=== PATIENT | female | born 1990 | race Two or more races ===

== ENCOUNTER 2019-07-06 06:26 | Emergency (ER) | payer SELFPAY ==
[2019-07-06 06:35] VITALS: BP 146/81
--- NOTE | 2019-07-06 06:52 | ED Physician Documentation ---
PD HPI HEENT - Stated complaint Stated Complaint: EAR PX - Chief complaint Chief Complaint: Heent - History obtained from History obtained from: Patient - History of Present Illness Timing - onset: How many days ago (few) Timing - duration: Days (few) Timing - details: Gradual onset Location: Right ear Worsens: Swalllowing, Position Associated symptoms: Congestion (He states she does have a history of allergies and gets congested and sometimes feeling of clogged ears. Typically will improve with some Claritin. The current congestion and right ear pressure has not improved with Claritin the last few days and is now hurting significantly overnight.). No: Fever Similar symptoms before: Has not had sx before Review of Systems Constitutional: denies: Fever, Chills Ears: reports: Ear pain. denies: Drainage/discharge Throat: denies: Sore throat Respiratory: denies: Cough PD PAST MEDICAL HISTORY - Past Medical History Past Medical History: No Cardiovascular: None Respiratory: None Neuro: None Endocrine/Autoimmune: None GI: None BIOINFORMATICS ANALYST: None : None HEENT: None Psych: None Musculoskeletal: None Derm: None - Past Surgical History Past Surgical History: No - Present Medications Home Medications: Ambulatory Orders Medication Instructions Recorded Confirmed Hydrocodone/Acetaminophen [[place] 1 each PO Q6H PRN #12 tablet 07/06/19 5-325 Tablet] RX: Amoxicillin 500 mg PO TID #21 capsule 07/06/19 dexAMETHasone [Decadron] 4 mg PO DAILY #5 tablet 07/06/19 - Allergies Allergies/Adverse Reactions: Allergies Allergy/AdvReac Type Severity Reaction Status Date / Time No Known Drug Allergies Allergy Verified 07/06/19 06:35 - Social History Does the pt smoke?: Yes Smoking Status: Current every day smoker Does the pt drink ETOH?: No Does the pt have substance abuse?: No - Immunizations Immunizations are current?: Yes - POLST Patient has POLST: No PD ED PE NORMAL - Vitals Vital signs reviewed: Yes - General General: Alert and oriented X 3, No acute distress, Well developed/nourished - HEENT HEENT: Pharynx benign. No: Ears normal (Left is normal. Right with redness and bulging of the TM, with some canal redness and swelling as well. No exudate. ) - Neck Neck: Supple, no meningeal sign, No adenopathy - Cardiac Cardiac: RRR, No murmur - Respiratory Respiratory: Clear bilaterally Results - Vitals Vitals: Vital Signs - 24 hr 07/06/19 06:34 Temperature 36.6 C Heart Rate 79 Respiratory 17 Rate Blood Pressure 146/81 H O2 Saturation 98 Oxygen O2 Source Room air Departure - Departure Disposition: 01 Home, Self Care Clinical Impression: Otitis media, Ear pain, right Condition: Stable Record reviewed to determine appropriate education?: Yes Instructions: ED Otitis Media Acute Adult Prescriptions: RX: Amoxicillin 500 mg PO TID #21 capsule dexAMETHasone [Decadron] 4 mg PO DAILY #5 tablet Hydrocodone/Acetaminophen [[place] 5-325 Tablet] 1 each PO Q6H PRN #12 tablet PRN Reason: Pain Comments: Use a daily allergy medicine such as Claritin or Zyrtec. Stay well-hydrated. Take the amoxicillin antibiotic 3 times a day for a week. Add Decadron steroid for inflammation of the ear in the canal daily for several more days as directed. Add Tylenol or hydrocodone if needed for pain and this should improve over the next day or 2 do not need to be taking pain medicine beyond that. Recheck if not improved well over the next few days. Discharge Date/Time: 07/06/19 07:14
[2019-07-06] MEDS ORDERED: AMOXICILLIN 250 MG CAPSULE PO STA (06:58)
[2019-07-06] MEDS ORDERED: HYDROcod/ACETAM 5/325 MG TABLET PO STA (06:58)
[2019-07-06] MEDS ORDERED: CHERRY SYRUP 10 ML UDC PO ONE (06:59)
[2019-07-06] MEDS ORDERED: CETIRIZINE 10 MG TABLET PO STA (06:59)
[2019-07-06] MEDS ORDERED: DEXAMETHASONE 10 MG/ML VIAL PO STA (06:59)
== END 2019-07-06 07:14 | disposition home or self-care (01) ==
LOC: ED 06:26
DX: H66.91 Otitis media, unspecified, right ear (principal); F17.200 Nicotine dependence, unspecified, uncomplicated
CPT/HCPCS: 99283; 99284; A9270

== ENCOUNTER 2019-09-10 13:42 | Emergency (ER) | payer SELFPAY ==
[2019-09-10 14:00] VITALS: BP 171/77
--- NOTE | 2019-09-10 14:27 | ED Physician Documentation ---
PD HPI SKIN - Stated complaint Stated Complaint: RT ARM REDNESS/SWELLING - Chief complaint Chief Complaint: Wound - History obtained from History obtained from: Patient - History of Present Illness Timing - onset: How many weeks ago (`) Timing - duration: Weeks (`) Timing - details: Abrupt onset Severity Comments: mild Location: RUE (forearm) Quality / character: Painful, Raised Improved by: Antibiotics (topical triple antibiotic) Worsened by (comment): COMMENT (palpating) Associated symptoms: No: Fever, Myalgias, Joint pain, Abd pain Contributing factors: Insect bite /sting (suspected bite) Similar symptoms before: Has not had sx before Recently seen: Not recently seen - Treatment prior to arrival Treatment prior to arrival: neosporin - Additional information Additional information: Pt reports that today she bumped her arm and clear fluid came out of the site. 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 : None HEENT: None Psych: None Musculoskeletal: None Derm: None - Past Surgical History Past Surgical History: No - Present Medications Home Medications: Ambulatory Orders Medication Instructions Recorded Confirmed Amoxicillin 500 mg PO TID #21 capsule 07/06/19 Hydrocodone/Acetaminophen [[place] 1 each PO Q6H PRN #12 tablet 07/06/19 5-325 Tablet] dexAMETHasone [Decadron] 4 mg PO DAILY #5 tablet 07/06/19 - Allergies Allergies/Adverse Reactions: Allergies Allergy/AdvReac Type Severity Reaction Status Date / Time No Known Drug Allergies Allergy Verified 09/10/19 13:54 - Social History Does the pt smoke?: Yes Smoking Status: Current every day smoker Does the pt drink ETOH?: No Does the pt have substance abuse?: No - Immunizations Immunizations are current?: Yes - POLST Patient has POLST: No PD ED PE NORMAL - Vitals Vital signs reviewed: Yes - General General: Alert and oriented X 3, No acute distress, Well developed/nourished - HEENT HEENT: Atraumatic - Cardiac Cardiac: RRR - Respiratory Respiratory: No respiratory distress - Abdomen Abdomen: Non distended - Female Female : Deferred - Rectal Rectal: Deferred - Derm Derm: Normal color, Warm and dry - Extremities Extremities: No deformity, No tenderness to palpate, Normal ROM s pain - Neuro Neuro: Alert and oriented X 3 Eye Opening: Spontaneous Motor: Obeys Commands Verbal: Oriented GCS Score: 15 - Psych Psych: Normal mood, Normal affect PD ED PE EXPANDED - Derm Derm: Other (small lesion likely due to a bug bite with surrounding scab, no drainage, no fluctuance, no redness or swelling, no tenderness) Results - Vitals Vitals: Vital Signs - 24 hr 09/10/19 13:54 Temperature 37.1 C Heart Rate 79 Respiratory 17 Rate Blood Pressure 171/77 H O2 Saturation 99 Oxygen O2 Source Room air PD MEDICAL DECISION MAKING - ED course Complexity details: considered differential, d/w patient ED course: ddx- bug bite, cellulitis, abscess, abrasion 28 y/o F with a very small lesion on her R forearm that she reports is from a bug bite and occurred at night. Today she hit it against a wall, it popped and s om clear serous fluid came out, but no pus. The area is soft, nonfluctuant, wtihout surrounding redness or discharge. She has no fevers. I do not feel this is infected at t his time but advised her to continue topical triple antibiotic for healing and prevention of infection. Discussed return precautions in case of worsening symptoms, fever or new concerns. Departure - Departure Disposition: 01 Home, Self Care Clinical Impression: Bug bite Qualifiers: Encounter type: initial encounter Qualified Code(s): W57.XXXA - Bitten or stung by nonvenomous insect and other nonvenomous arthropods, initial encounter Condition: Stable Record reviewed to determine appropriate education?: Yes Follow-Up: your, doctor [Other] Comments: You were evaluated today for a possible bug bite on your R forearm. This has an area of healing but does not appear acutely infected. You should continue to use topical triple antibiotic ointment twice a day. If you develop any fever, streaking redness up your arm or swelling return to the ED.
[2019-09-10] MEDS ORDERED: BACITRACIN ZINC OINT 14 GM TOP ONE (14:49)
== END 2019-09-10 14:40 | disposition home or self-care (01) ==
LOC: ED 13:42
DX: S50.861A Insect bite (nonvenomous) of right forearm, initial encounter (principal); W57.XXXA Bitten or stung by nonvenomous insect and other nonvenomous arthropods, initial encounter; F17.200 Nicotine dependence, unspecified, uncomplicated
CPT/HCPCS: 99281; 99282; A9270